=== PATIENT | female | born 1995 | race Caucasian/White ===

== ENCOUNTER → 2020-02-17 15:28 | Outpatient (CLI) | payer MEDICARE, MEDICAID, SELFPAY ==
[2020-02-18 04:28] LABS: COVID19 Sendout Not Detected (Not Detect)
== END ==
PROVIDERS: Visit Provider Family Medicine
DX: Z01.812 Encounter for preprocedural laboratory examination (principal)
CPT/HCPCS: 87635

== ENCOUNTER 2020-02-20 05:47 | Inpatient (IN) | payer MEDICARE, MEDICAID, SELFPAY ==
--- NOTE | 2020-02-11 14:57 | P.HPOB_ITS ---
OB HPI Date/Time Date of admission: 02/20/20 Date Patient Seen: 02/09/20 History of Present Condition Chief complaint: [id number] : 4 Para: 3 Estimated Date of Delivery: 02/25/20 Narrative: Josephine Borges is a 24 year old female with RODGER 02/25/2020 set by a 10 week ultrasound, who is being admitted at 39 weeks for a repeat section. She has a history of prior section for breech presentation with her 2nd , then subsequently had a . She was desiring a repeat for this , however she now desires to proceed with repeat section for delivery. She recently moved to the area and since now desires repeat C- section, presented for transfer of care at 37 weeks, desiring delivery here. Baby is also persisting as breech presentation. has been uncomplicated. Indications Operative indications ( section): breech presentation History of Present care: good care Dating criteria: based on 1st trimester US only Ultrasounds: normal 1st trimester US and normal mid trimester US Obstetrical complications: none Medical complications: none Preadmission Labs Blood type: B (+) positive -: Antibody screen: negative, GBS status: negative, HBsAG: negative (07/30/2019), HIV: negative (07/30/2019) and RPR/VDLR: negative (07/30/2019) -: Chlamydia screen: not detected (07/30/2019) and Gonorrhea screen: not detected (07/30/2019) -: Rubella: immune Cell-free DNA: normal 1 hr GTT: 107 Prior (ies) History: Vaginal delivery, followed by primary section for breech, followed by vaginal after section [facility] Medical History (Updated 02/04/20 @ 20:47 by Lizzie Brian) Anxiety (Acute) Breech (Acute) Chicken pox (Resolved) Depression (Acute) MRSA (methicillin resistant staph aureus) culture positive (Acute ~2008) Post depression (Acute) PTSD (post-traumatic stress disorder) (Acute) 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) Smokers' cough (Chronic) (spontaneous vaginal delivery) (Acute) UTI (urinary tract infection) (Acute) (vaginal after ) (Acute) Surgical History (Updated 02/02/20 @ 09:35 by Roxanna Bowers RN) History of primary section (Acute) [place] teeth removed (Acute) Family History (Updated 02/02/20 @ 09:46 by Roxanna Bowers RN) Mother PTSD (post-traumatic stress disorder) Anxiety Bipolar 1 disorder Father Unknown family medical history Family estrangement Mental health problem Grandfather AA (alcohol abuse) Liver cirrhosis Grandmother Hypertension Melanoma Hyperthyroidism Bipolar 1 disorder Family/Other Melanoma Social History Smoking Status: Current every day smoker Meds Home Medications and Allergies Home Medications Medication Instructions Recorded Confirmed Type Flinstone Multi Gummy PO 02/06/20 02/09/20 History Allergies Allergy/AdvReac Type Severity Reaction Status Date / Time No Known Drug Allergies Allergy Verified 02/09/20 10:16 Review of Systems Review of Systems Narrative: Denies regular contractions, leakage of fluid and vaginal bleeding. Denies shortness of breath or fever. Reports good move Exam Vital Signs (past 8 hours): Weight 151 lb, Afebrile, BP 110/50 Narrative Exam Narrative: General: Well-appearing gravid female in no acute distress Neck: Supple, negative for palpable cervical or supraclavicular adenopathy Thyroid: Negative for palpable masses Heart: Regular rate rhythm, negative for audible murmur Lungs: Clear to auscultation bilaterally Abdomen gravid, nontender. Fundal height 36 cm Extremities: Negative for edema Office US, artis breech presentation Assessment and Plan Assessment and Plan Assessment and Plan narrative: Thirty-nine week , history of prior section, breech presentation. Desires repeat section for delivery Plan: Admit for repeat section NPO after midnight Ancef 2 g IV to be given preop in the OR SCDs in the OR Both she and her partner did a pre-op screen for Covid 19, and both were negative Repeat section procedure reviewed. Surgical risk of bleeding, infection, injury to adjacent organs including bowel and urinary system, reviewed to include bladder and ureters, as well as small risk of injury to baby discussed. Verbal and written consent obtained
[2020-02-20 06:47] LABS: Add Manual Diff / Slide Review NO; Basophils Absolute Auto 0 /uL (0-100); Basophils Percent Auto 0.2 % (0-2); Eosinophils Absolute Auto 200 /uL (0-450); Eosinophils Percent Auto 1.5 % (2-4); Hematocrit 35.6 % (36-46); Hemoglobin 12.1 g/dL (12.0-16.0); Lymphocytes Absolute Auto 2500 /uL (1100-4500); Lymphocytes Percent Auto 19.7 % (25-40); Mean Corpuscular HGB Conc 33.9 % (30-36); Mean Corpuscular Hemoglobin 31.1 PG (26-34); Mean Corpuscular Volume 91.8 fL (80-100); Monocytes Absolute Auto 1200 /uL (0-900); Monocytes Percent Auto 9.4 % (3-14); Neutrophils Absolute Auto 8700 /uL (1500-7000); Neutrophils Percent Auto 69.2 % (50-75); Platelet Count 104 X10^3/uL (150-400); Red Blood Cell Count 3.88 X10^6/uL (4.0-5.2); Red Cell Distribution Width 13.8 % (11.6-14.8); White Blood Cell Count 12.6 X10^3/uL (4.5-11.0)
--- NOTE | 2020-02-20 07:28 | PM.PREOP ---
Pre-operative Note COVID-19 COVID-19 status: Negative Result date/Date tested (Pos, Neg/Pending): 02/17/20 Interval Note History & Physical reviewed/Exam performed by Physician: Yes Changes to H&P: No
[2020-02-20] MEDS: CEFAZOLIN 2 GM/100 ML FROZ.PIGGY IV (07:58)
--- NOTE | 2020-02-20 08:28 | SUR.OPER ---
Supine on Padded OR bed, head on pillow, safety belt at thigh, arms secured on padded arm boards at <90 degrees abduction. Bump under right buttock. Legs uncrossed with pillow under knees, gel pad to heels, tape over blanket to lower legs.
[2020-02-20] MEDS: LACTATED RINGERS 1,000 ML 100 ML IV ×2 (08:49→17:44)
--- NOTE | 2020-02-20 08:56 | SUR.OPER ---
viable baby girl born at 08, placenta delivered at 08, cord blood and placenta given to ob rn 4/8
[2020-02-20 09:25] VITALS: BP 90/58; PULSE 56; RESP 12; TEMP 36.2; O2SAT 93
--- NOTE | 2020-02-20 09:26 | PM.PROC.1 ---
Procedures Date/Time Date of procedure: 02/20/20 Time of procedure: 09:26
--- NOTE | 2020-02-20 09:27 | PM.OP.1 ---
Operative Date/Time/Diagnoses Date of procedure: 02/20/20 Time of procedure: 09:27 Pre-op diagnosis: 39 week , prior section, desires repeat for delivery, persistent breech presentation Post-op diagnosis: same Procedure & Clinicians Same procedure as scheduled: Yes Indications: Persistent breech presentation, prior section Surgeon: Eliana Chance Data Entry Associate: Ashley Us Anesthesia Type: Spinal Operative Notes Findings: was in the artis breech presentation, sacrum right posterior. Uterus and bilateral tubes and ovaries were normal in appearance Viable female infant delivered. Weight 5 lb 111.8 oz. Apgars 4, 8, 10 at 1, 5 and 10 minutes respectively. 1 minute of PPV needed and then infant cried spontaneously became more vigorous. Closure Type: primary Specimen(s): other (Cord blood to lab) Applied: catheter (Garcia placed) Estimated Blood Loss (mL): 400 Blood products transfused: none Procedure in detail: IV fluids: 2500 ml crystalloid Urine output: 250 mL Description of procedure: The patient was transferred from the center to the operating room. Spinal anesthesia was placed by the anesthesiologist. She was placed in the supine position. FHR auscultated and was normal after the spinal anesthesia. Garcia catheter was placed and she was prepped and draped in routine sterile fashion. Time-out was taken and the patient procedure was identified. Anesthesia level was tested and was adequate. A Pfannenstiel skin incision was made in the lower abdomen through her prior transverse skin incision and carried down to the level of the fascia. The fascia was incised in the midline and was extended transversely. The superior and inferior edges of the fascia were elevated and dissected off the rectus muscles with sharp and blunt dissection. The muscles were bluntly split in the midline. The parietal peritoneum was elevated, incised and extended bluntly. The bladder blade was placed. The visceral peritoneum was elevated off the lower uterus, incised and the bladder flap was bluntly created. The bladder blade retractor was placed. A transverse incision was made in the lower uterus and the incision was extended transversely with blunt dissection. Clear fluid was noted. Baby was in the artis breech presentation. Both lower legs legs were initially palpated, grasped and held through the incision. The buttocks was easily elevated and delivered through the incision. The baby was small and while rotating the baby to sacrum anterior, the baby already delivered up to its umbilicus while the right side of the infant was more anterior. The 's right arm was palpated and the right arm was delivered with ease with cat's paw maneuver. The was rotated to her left side up. The left arm was similarly delivered without difficulty with gentle pressure on the humerus, cats paw maneuver. The was turned to sacrum anterior and held with a moist towel. With fundal assistance and with pressure on the upper mandible of the infant the head was flexed and delivered through the incision with ease. The infant was not vigorous and was bulb suctioned. Cord was clamped and cut. The baby girl was shown to her mother and handed off to respiratory therapy who was present for delivery. Cord blood was obtained a specimen. The placenta was manually removed. It appeared intact with a normal three-vessel cord. The uterus was brought through the abdominal incision and swept clean of adherent clots and membranes. The uterus was closed in 1 layers with 0 Vicryl in running locking continuous fashion. There was light persistent bleeding to the left of midline which was controlled with a [id number]-cm-cgwcl suture of 0 Vicryl. Hemostasis was noted. The tubes and ovaries were inspected and noted to be normal. Posterior to the uterus was suctioned of some minimal blood and fluid. The uterus was placed back into the maternal abdomen. The paracolic gutters were inspected and were free of blood and fluid. The anterior cul-de-sac was inspected and some fluid and clot was removed. The uterine incision was re- inspected and good hemostasis was noted. The abdomen was closed. The muscles were reapproximated with 3 interrupted sutures of 0 Vicryl. The fascia was closed with running continuous suture of 0 Vicryl. The subcutaneous tissue was reapproximated with 300 Vicryl by reapproximating Radha's fascia. The skin was closed with a subcuticular suture of 4 0 Monocryl. Steri-Strips and sterile Aquacel dressing was placed. She tolerated the procedure well and went to the recovery room in stable condition
[2020-02-20 09:30] VITALS: BP 100/59; PULSE 58; RESP 12; TEMP 35.9; O2SAT 97
[2020-02-20 09:35] VITALS: BP 103/61; PULSE 61; RESP 13; TEMP 36; O2SAT 100
[2020-02-20 09:40] VITALS: BP 103/67; PULSE 57; RESP 16; TEMP 35.9; O2SAT 99
[2020-02-20 09:49] VITALS: BP 94/64; PULSE 59; RESP 14; TEMP 36.1; O2SAT 94
--- NOTE | 2020-02-20 10:03 | SUR.PHASEI ---
Patient taken to center in stable condition. Report given to receiving RN and patient left in good condition with receiving RN at bedside.
[2020-02-20 11:33] VITALS: BP 98/52
[2020-02-20] MEDS: OXYCODONE IR 5 MG TABLET PO (12:31)
[2020-02-20] MEDS: KETOROLAC 30 MG/ML VIAL IV ×2 (14:56→20:49)
[2020-02-20] MEDS: NICOTINE 14 PATCH 14 MG TOP (18:51)
[2020-02-21] MEDS: KETOROLAC 30 MG/ML VIAL IV (03:08)
[2020-02-21] MEDS: OXYCODONE IR 5 MG TABLET PO ×4 (06:26→23:54)
[2020-02-21] MEDS: LANOLIN OINT 7 GM 1 APPLIC TOP (06:27)
[2020-02-21 06:59] LABS: Add Manual Diff / Slide Review NO; Basophils Absolute Auto 0 /uL (0-100); Basophils Percent Auto 0.1 % (0-2); Eosinophils Absolute Auto 200 /uL (0-450); Eosinophils Percent Auto 1.4 % (2-4); Hematocrit 33.1 % (36-46); Hemoglobin 11.3 g/dL (12.0-16.0); Lymphocytes Absolute Auto 2000 /uL (1100-4500); Lymphocytes Percent Auto 14.9 % (25-40); Mean Corpuscular HGB Conc 34.1 % (30-36); Mean Corpuscular Hemoglobin 31.3 PG (26-34); Mean Corpuscular Volume 91.7 fL (80-100); Monocytes Absolute Auto 1000 /uL (0-900); Monocytes Percent Auto 7.1 % (3-14); Neutrophils Absolute Auto 10300 /uL (1500-7000); Neutrophils Percent Auto 76.5 % (50-75); Platelet Count 83 X10^3/uL (150-400); Red Blood Cell Count 3.61 X10^6/uL (4.0-5.2); Red Cell Distribution Width 13.9 % (11.6-14.8); White Blood Cell Count 13.5 X10^3/uL (4.5-11.0)
[2020-02-21 07:10] LABS: Alanine Aminotransferase 12 IU/L (<35); Albumin 2.9 g/dL (3.5-5.0); Alkaline Phosphatase 100 U/L (38-126); Aspartate Aminotransferase 26 IU/L (14-36); Bilirubin Total 0.2 mg/dL (0.2-1.3); Blood Urea Nitrogen 9 mg/dL (7-17); Calcium 8.5 mg/dL (8.4-10.2); Carbon Dioxide 25 mmol/L (22-32); Chloride 105 mmol/L (98-107); Estimated Glomerular Filt Rate > 60.0 mL/min (>60); Glucose 83 mg/dL (70-100); HEMOLYSIS < 15 (0-50); Potassium 4.1 mmol/L (3.4-5.1); Sodium 133 mmol/L (137-145); Total Protein 5.9 g/dL (6.3-8.2)
[2020-02-21] MEDS: DOCUSATE 250 MG CAPSULE PO (09:00)
[2020-02-21] MEDS: IBUPROFEN 600 MG TABLET PO ×3 (09:00→21:19)
[2020-02-21] MEDS: ACETAMINOPHEN 325 MG TABLET 650 MG PO (11:46)
[2020-02-21] MEDS: NICOTINE 14 PATCH 14 MG TOP (15:03)
--- NOTE | 2020-02-21 16:35 | PM.PNPO.1 ---
Subjective Subjective Date Patient Seen: 02/21/20 Time Patient Seen: 16:10 Interval history: Patient feels well. Incisional discomfort controlled with oxycodone. Voiding without problems. Lochia is normal. Ambulated. She is tolerating a regular diet. Denies nausea. Passing flatus and has had a BM. Baby is well. Exam Vital Signs (past 8 hours): Afebrile. BP 99/51 pulse 66 Oxygen Delivery Method Room Air Narrative Exam Narrative: General: Well-appearing female Abdomen: Soft, nontender, mildly nondistended. Dressing dry with only a small old blood stained area, stable from yesterday. Fundus U -2, firm, nontender Extremities: Trace pedal edema Objective Labs Result Diagrams: 02/21/20 06:34 02/21/20 06:34 Labs: Laboratory Results - last 24 hr 02/21/20 02/21/20 06:34 06:34 WBC 13.5 H RBC 3.61 L Hgb 11.3 L Hct 33.1 L MCV 91.7 MCH 31.3 MCHC 34.1 RDW 13.9 Plt Count 83 L Neut % (Auto) 76.5 H Lymph % (Auto) 14.9 L Armstrong % (Auto) 7.1 Eos % (Auto) 1.4 L Baso % (Auto) 0.1 Neut # (Auto) 10892 H Lymph # (Auto) 2000 Armstrong # (Auto) 1000 H Eos # (Auto) 200 Baso # (Auto) 0 Sodium 133 L Potassium 4.1 Chloride 105 Carbon Dioxide 25 BUN 9 Creatinine 0.53 Estimated GFR > 60.0 BUN/Creatinine Ratio 17.0 Glucose 83 Calcium 8.5 Total Bilirubin 0.2 AST 26 ALT 12 Alkaline Phosphatase 100 Total Protein 5.9 L Albumin 2.9 L Globulin 3.0 Albumin/Globulin Ratio 1.0 Assessment & Plan Post-op Postoperative Procedures: Procedures Operation Date: 02/20/20 07:45 Actual Procedures Side Surgeon p Section Eliana Chance MD Postoperative day: 1 Postoperative status: doing well Postoperative plan: routine post-op care Postoperative plan narrative: Answered questions regarding expected postoperative course at home and pain management and home with alternating her oxycodone, ibuprofen and Tylenol. Continue to p.o. hydrate well for the . Time Spent With Patient Time with patient: 15-24 minutes
[2020-02-22] MEDS: IBUPROFEN 600 MG TABLET PO ×2 (03:38→09:21)
[2020-02-22] MEDS: OXYCODONE IR 5 MG TABLET PO ×2 (04:12→09:20)
[2020-02-22 06:28] VITALS: BP 98/52; PULSE 59; RESP 14; TEMP 36.1
[2020-02-22] MEDS: DOCUSATE 250 MG CAPSULE PO (09:20)
--- NOTE | 2020-02-22 10:51 | P.DS_ITS ---
Discharge Providers Provider Date of admission: 02/20/20 05:47 Discharge Date: 02/22/20 Primary care physician: Eliana Chance MD Consults: 02/20/20 11:25 Consult to Blow Moulding Machine Operator Routine Comment: Discharge provider: Eliana Chance MD Summary Hospital Course Date Patient Seen: 02/22/20 Time Patient Seen: 11:00 Procedures: Repeat lower transverse section Hospital Course: 24-year-old , now P4 female admitted at 39 weeks for repeat section. Her was uncomplicated. She underwent repeat sect ion without complications. Infant had been in the persistent artis breech presentation. She delivered a viable female infant weighing 5 lb 11 oz with Apgars of 4, 8, 10 at 1, 5, 10 minutes respectively. Platelets on admission were 104. Her BP was normal and LFTs were normal; no signs or symptoms of preeclampsia. Thus lower platelets appear consistent with gestational thrombocytopenia since they were 160s in her early . Platelets on discharge were 83, Hgb 11.3. She had a normal postoperative and course. She has had normal return of bowel function. Her lochia has remained normal. She is breast-feeding without problems. She is ready for discharge and is being discharged home on postoperative day 2 Peripartum Data Delivery Method: Section Procedures: Repeat lower transverse section complications: none [place] 1: Gender: Female Disposition of : home Status at Discharge Cognitive/behavioral status at discharge: oriented Functional status at discharge: independent ambulation Overall status at discharge: patient is progressing back to baseline Time Spent with Patient Time attestation: Total time spent providing and/or coordinating discharge services: 20 minutes Specific discharge activities: Ambulate short distances only for first 2 weeks. Nothing in the vagina for 6 weeks. No heavy lifting for [address] after 2 weeks, or when no longer taking oxycodone, whichever is longer. Time spent discussing smoking cessation with patient: more than 10 minutes Objective Labs Result Diagrams: 02/21/20 06:34 02/21/20 06:34 Exam Vital Signs (past 8 hours): Afebrile, BP 114/62 Pulse 80 RR 17 02/22/20 06:28 Temperature 97.0 F L Pulse Rate 59 L Respiratory Rate 14 Blood Pressure 98/52 L Oxygen Delivery Method Room Air Narrative Exam Narrative: General: Well-appearing female Abdomen: Soft, nontender, nondistended. Dressing intact, dry, with only blood seen area, approximately 50 cent piece size, unchanged Fundus U -1, firm, nontender Extremities: Trace pedal edema Discharge Plan Discharge Plan Patient Disposition: Home Discharge comment: Follow-up appointment SundayFebruary 26 to remove dressing and incision check Discharge orders & Medications Prescriptions: New acetaminophen 325 mg Tablet 650 mg PO Q6HR PRN (Reason: Fever/Mild Pain (1-3)) Qty: 0 RF: 0 ibuprofen 600 mg Tablet 600 mg PO Q6HR PRN (Reason: Fever/Mild Pain (1-3)) Qty: 90 RF: 1 docusate sodium 250 mg Capsule 250 mg PO DAILY Qty: 0 RF: 0 oxycodone 5 mg Tablet 5 mg PO Q4HR PRN (Reason: Pain, Moderate (4-6)) Qty: 20 RF: 0 Yqy-J-Znggld Cream 1 applic topical PRN PRN (Reason: ) Qty: 0 RF: 0 Continued Flinstone Multi Gummy tablet 1 tab PO DAILY RF: 0 Follow up/Referrals: Eliana Chance MD [Primary Care Provider] - Discharge Health Status Multidrug resistant organism: No MDRO Diet/Activity/Treatments Diet: Regular Activity: No heavy lifting and nothing in the vagina, no intercourse or tampons for 6 weeks. No driving for 2 weeks, and no driving while still using oxycodone Skin/Wound/Dressing Care Report to your healthcare provider any signs of infection, such as:: chills, fever, increased pain, unusual drainage and unusual redness Dressing: Leave in place. May shower with the dressing in place. Call for persistent nausea or vomiting, fever greater than 100? F, skin redness above the incision, persistent increased abdominal pain or for heavy vaginal bleeding Visit Report/Discharge Packet Stand Alone Forms: Discharge: Care Discharge Data Primary Care Provider: Eliana Chance
== END 2020-02-22 12:00 | disposition home or self-care (01) | DRG 788 ==
PROVIDERS: Admitting Provider Obstetrics & Gynecology; PCP Obstetrics & Gynecology; Referring Provider Obstetrics & Gynecology; Visit Provider Obstetrics & Gynecology
PROC: 10D00Z1 Extraction of Products of Conception, Low, Open Approach (ICD-10-PCS; CPT 59514; principal; 2020-02-20 07:45)
DX: O34.219 Maternal care for unspecified type scar from previous cesarean delivery (principal); Z3A.39 39 weeks gestation of pregnancy; Z37.0 Single live birth; O99.334 Smoking (tobacco) complicating childbirth
CPT/HCPCS: 36415; 59050; 59514; 59515; 80053; 85025; 86850; 86900; 86901; 87635; J0690; J1885; J2274; J2405; J2590

== ENCOUNTER → 2020-02-27 11:10 | Outpatient (CLI) | payer MEDICARE, MEDICAID, SELFPAY | PROVIDERS: PCP Obstetrics & Gynecology; Visit Provider Obstetrics & Gynecology | DX: R30.0 Dysuria (principal) | CPT/HCPCS: 87086 ==

== ENCOUNTER → 2023-03-19 09:29 | Outpatient (CLI) | payer OTHER, MEDICAID, SELFPAY ==
[2023-03-19 10:22] LABS: Add Manual Diff / Slide Review NO; Basophils Absolute Auto 0 /uL (0-100); Basophils Percent Auto 0.2 % (0-2); Eosinophils Absolute Auto 100 /uL (0-450); Eosinophils Percent Auto 1.6 % (2-4); Hematocrit 35.2 % (36-46); Hemoglobin 12.5 g/dL (12.0-16.0); Lymphocytes Absolute Auto 1700 /uL (1100-4500); Lymphocytes Percent Auto 28.7 % (25-40); Mean Corpuscular HGB Conc 35.4 % (30-36); Mean Corpuscular Hemoglobin 31.3 PG (26-34); Mean Corpuscular Volume 88.6 fL (80-100); Monocytes Absolute Auto 500 /uL (0-900); Monocytes Percent Auto 7.8 % (3-14); Neutrophils Absolute Auto 3600 /uL (1500-7000); Neutrophils Percent Auto 61.7 % (50-75); Platelet Count 135 X10^3/uL (150-400); Red Blood Cell Count 3.97 X10^6/uL (4.0-5.2); Red Cell Distribution Width 13.1 % (11.6-14.8); White Blood Cell Count 5.8 X10^3/uL (4.5-11.0)
[2023-03-19 17:36] LABS: Hepatitis B Surface Antigen NEGATIVE s/c (NEGATIVE); Rubella Antibody IgG 66.2 IU/mL (>15)
[2023-03-19 17:55] LABS: HIV 1 & 2 Ab/Ag 4th Gen Combo NEGATIVE (NEGATIVE); Hep C Virus Ab w/Reflex Quant NEGATIVE s/c (NEGATIVE)
[2023-03-20 08:52] LABS: Varicella IgG Antibody 1688 index (Immune >165)
[2023-03-21 09:18] LABS: RPR Screen Non Reactive (Non Reactive)
== END ==
PROVIDERS: Specialist; PCP Pediatrics; Referring Provider Obstetrics & Gynecology; Visit Provider Obstetrics & Gynecology
DX: Z34.81 Encounter for supervision of other normal pregnancy, first trimester (principal)
CPT/HCPCS: 36415; 80055; 86787; 86803; 86850; 86900; 86901; 87389

== ENCOUNTER → 2023-03-20 09:47 | Outpatient (CLI) | payer OTHER, MEDICAID, SELFPAY | PROVIDERS: PCP Pediatrics; Visit Provider Obstetrics & Gynecology | DX: R30.0 Dysuria (principal); O26.891 Other specified pregnancy related conditions, first trimester | CPT/HCPCS: 87086 ==

== ENCOUNTER → 2023-05-02 10:03 | Outpatient (CLI) | payer OTHER, MEDICAID, SELFPAY ==
[2023-05-02 11:16] LABS: Add Manual Diff / Slide Review NO; Basophils Absolute Auto 0 /uL (0-100); Basophils Percent Auto 0.2 % (0-2); Eosinophils Absolute Auto 100 /uL (0-450); Eosinophils Percent Auto 1.2 % (2-4); Hematocrit 32.8 % (36-46); Hemoglobin 11.7 g/dL (12.0-16.0); Lymphocytes Absolute Auto 1400 /uL (1100-4500); Lymphocytes Percent Auto 20.4 % (25-40); Mean Corpuscular HGB Conc 35.7 % (30-36); Mean Corpuscular Hemoglobin 31.8 PG (26-34); Mean Corpuscular Volume 89.2 fL (80-100); Monocytes Absolute Auto 600 /uL (0-900); Monocytes Percent Auto 8.6 % (3-14); Neutrophils Absolute Auto 4800 /uL (1500-7000); Neutrophils Percent Auto 69.6 % (50-75); Platelet Count 119 X10^3/uL (150-400); Red Blood Cell Count 3.68 X10^6/uL (4.0-5.2); Red Cell Distribution Width 12.7 % (11.6-14.8); White Blood Cell Count 6.9 X10^3/uL (4.5-11.0)
[2023-05-05 20:33] LABS: AFP Value 18.1 ng/mL (.); Gest Age on Col Date 17.1 weeks (.); Insulin Dep Diabetes No (.); OSBR Risk 1IN 10000 (.); Results Report (.); Test Results *Screen Negative* (.)
== END ==
PROVIDERS: Physician Assistant Medical; PCP Pediatrics; Referring Provider Specialist; Visit Provider Specialist
DX: O99.119 Other diseases of the blood and blood-forming organs and certain disorders involving the immune mechanism complicating pregnancy, unspecified trimester (principal); Z3A.17 17 weeks gestation of pregnancy; D69.6 Thrombocytopenia, unspecified
CPT/HCPCS: 36415; 82105; 85025

== ENCOUNTER → 2023-05-30 08:55 | Outpatient (CLI) | payer OTHER, SELFPAY ==
--- NOTE | 2023-05-30 08:56 | DI.US.S_ITS ---
PROCEDURE: US OB >= 14 WEEKS FETUS INDICATIONS: ANATOMY OUTSIDE/PRIOR DATING DATA: Last menstrual period (LMP): 01/02/2023. LMP-based estimated date of delivery (RODGER): 10/09/2023. First dating scan (date and location): 03/08/2023. Estimated date of delivery (RODGER) from first dating scan: 10/10/2023. The calculations are made using the clinical RODGER of 10/09/2023. TECHNIQUE: Real-time scanning was performed of the fetus, with image documentation and biometric measurements. Endovaginal scanning: Not performed COMPARISON: [facility], , OB >= 14 WEEKS FETUS, 02/09/2020, 10:31. FINDINGS: General: A single living intrauterine gestation is present. Presentation: Vertex. Placenta: Placental position is anterior , without previa. Amniotic fluid index: 13.1 cm, normal range is 5-24 cm. Single deepest vertical pocket is 4.2 cm. heart rate: 147 beats per minute. Maternal cervical canal: 4.3 cm long. Normal lower limit is 2.5 cm. biometrics: Biparietal diameter: 5 cm, 21 weeks 0 days Head circumference: 18.5 cm, 20 weeks 6 days Abdominal circumference: 15.3 cm, 20 weeks 4 days Femur length: 3.6 cm, 21 weeks 2 days Clinically estimated gestational age: 21 weeks 1 day Composite gestational age from present scan: 21 weeks 0 days Estimated weight and percentile: 381 g, 29th percentile Anatomic survey: Neuro: Ventricles are non-dilated at less than 10 mm. Cisterna magna is normal at 3-11 mm. Cerebellum is normal in size and morphology. Nuchal skin fold: Normal at less than 6 mm between 14-21 weeks gestational age. Face: Nose and lips, facial profile are normal. Spine: No evidence for spina bifida. Heart: 4-chambered heart is present, with normal ventricular outflow tracts. Diaphragm: Diaphragm is intact. Stomach: Left-sided stomach is present. Kidneys: No hydronephrosis. Normal is less than 5 mm in 2nd trimester, less than 7 mm in 3rd trimester. Cord: 3-vessel cord has orthotopic insertion. Bladder: Normal in size. Extremities: All 4 extremities identified. IMPRESSION: Single living intrauterine at 21 weeks 1 day, RODGER of 10/09/2023. Normal anatomy survey. Estimated weight of 381 g, 29th percentile. We strive to produce accurate, complete, and clear reports of imaging services. To assist us in improving patient care, this report was composed using standard report templates and voice recognition software. Therefore, it may contain abnormal punctuation, insertions and/or omissions. Occasional wrong-word or sound-alike substitutions may occur. Though we review the report and make efforts to correct it, we do recommend that the report be read carefully in proper context to recognize any text inaccuracies. Dictated by: Dwayne Gibson M.D. on 06/04/2023 at 14:41 Approved by: Dwayne Gibson M.D. on 06/04/2023 at 14:44
== END ==
PROVIDERS: PCP Pediatrics; Referring Provider Specialist; Visit Provider Specialist
DX: Z34.82 Encounter for supervision of other normal pregnancy, second trimester (principal); Z3A.21 21 weeks gestation of pregnancy
CPT/HCPCS: 76811

== ENCOUNTER → 2023-08-01 10:43 | Outpatient (CLI) | payer OTHER, SELFPAY ==
[2023-08-01 12:29] LABS: Hematocrit 33.2 % (36-46); Hemoglobin 11.6 g/dL (12.0-16.0)
[2023-08-01 12:52] LABS: GTT (PREG) 1 Hour PP 50gm Dose 131 mg/dL (76-139)
== END ==
PROVIDERS: Referring Provider Specialist; Visit Provider Specialist
DX: Z34.82 Encounter for supervision of other normal pregnancy, second trimester (principal); Z3A.26 26 weeks gestation of pregnancy
CPT/HCPCS: 36415; 82950; 85014; 85018

== ENCOUNTER → 2023-08-29 10:00 | Outpatient (CLI) | payer OTHER, SELFPAY ==
[2023-08-30 17:00] LABS: Candida species Positive (Negative); Gardnerella vaginalis Positive (Negative); Trichomoas vaginalis Negative (Negative)
== END ==
PROVIDERS: Visit Provider Obstetrics & Gynecology
DX: N89.8 Other specified noninflammatory disorders of vagina (principal)
CPT/HCPCS: 87480; 87510; 87660

== ENCOUNTER → 2023-09-12 10:19 | Outpatient (CLI) | payer OTHER, SELFPAY ==
[2023-09-12 11:30] LABS: Add Manual Diff / Slide Review NO; Basophils Absolute Auto 0 /uL (0-100); Basophils Percent Auto 0.1 % (0-2); Eosinophils Absolute Auto 100 /uL (0-450); Eosinophils Percent Auto 0.7 % (2-4); Hematocrit 31.1 % (36-46); Hemoglobin 10.9 g/dL (12.0-16.0); Lymphocytes Absolute Auto 1900 /uL (1100-4500); Lymphocytes Percent Auto 17.4 % (25-40); Mean Corpuscular HGB Conc 35.1 % (30-36); Mean Corpuscular Hemoglobin 30.9 PG (26-34); Monocytes Absolute Auto 900 /uL (0-900); Monocytes Percent Auto 8.8 % (3-14); Neutrophils Absolute Auto 7800 /uL (1500-7000); Platelet Count 104 X10^3/uL (150-400); Red Blood Cell Count 3.53 X10^6/uL (4.0-5.2); Red Cell Distribution Width 13.9 % (11.6-14.8); White Blood Cell Count 10.7 X10^3/uL (4.5-11.0)
[2023-09-13 16:38] LABS: Strep Grp B PCR NEG for Grp B Strep
== END ==
PROVIDERS: Referring Provider Student in an Organized Health Care Education/Training Program; Visit Provider Student in an Organized Health Care Education/Training Program
DX: D69.6 Thrombocytopenia, unspecified (principal); Z3A.36 36 weeks gestation of pregnancy; Z34.83 Encounter for supervision of other normal pregnancy, third trimester
CPT/HCPCS: 36415; 85025; 87653

== ENCOUNTER 2023-10-04 05:47 | Inpatient (IN) | payer OTHER, MEDICAID, SELFPAY ==
[2023-10-04] VITALS (12 sets, daily range): BP systolic 101–116; BP diastolic 59–65; PULSE 58–135; RESP 14–65; TEMP 36.3–36.9; O2SAT 92–100
--- NOTE | 2023-10-04 | PATH_ITS ---
[facility] Accession Number: [id number] No. of containers..01 Tissue . 01 Material submitted: . fallopian tube - BILATERAL FALLOPIAN TUBES . 01 Diagnosis: A. Bilateral Fallopian Tubes, Bilateral Salpingectomy: Cross-sections of fallopian tubes with extensive edema and congestion of blood vessels and reactive change. Negative for dysplasia or malignancy. [facility] 10/16/2023 0859 Local . 01 Electronically signed: . Sussy Real MD, Pathologist NPI- [id number] . 01 Gross description: . The specimen is received in formalin labeled with the patient's name, , and bilateral fallopian tubes, consists of two unoriented, fimbriated fallopian tubes measuring 8.4 x 0.6 cm and 8.9 x 0.7 cm, respectively. Both tubes have violaceous, smooth serosa with no cystic structures identified, and sectioning reveals unremarkable stellate lumens. [employer] sections to include one-half of bisected fimbriae and cross sections are submitted as follows: . A1: Longer fallopian tube. A2: [place] fallopian tube. ([id number]) /MRV 10/05/2023 1735 Local . 01 Pathologist provided ICD-10: Z31.69 . 01 CPT . 187229 Specimen Comment: A courtesy copy of this report has been sent to [facility] Pathology Performed at: 01 [facility] [address] [place] [address] [address], [place], [place] [id number] MD Jake Hernández MD Phone: [phone]
[2023-10-04 07:45] LABS: Add Manual Diff / Slide Review NO; Basophils Absolute Auto 0 /uL (0-100); Basophils Percent Auto 0.1 % (0-2); Eosinophils Absolute Auto 100 /uL (0-450); Eosinophils Percent Auto 0.9 % (2-4); Hematocrit 32.8 % (36-46); Hemoglobin 11.3 g/dL (12.0-16.0); Lymphocytes Absolute Auto 1500 /uL (1100-4500); Lymphocytes Percent Auto 14.8 % (25-40); Mean Corpuscular HGB Conc 34.5 % (30-36); Mean Corpuscular Hemoglobin 29.9 PG (26-34); Mean Corpuscular Volume 86.8 fL (80-100); Monocytes Absolute Auto 900 /uL (0-900); Monocytes Percent Auto 8.5 % (3-14); Neutrophils Absolute Auto 7800 /uL (1500-7000); Neutrophils Percent Auto 75.7 % (50-75); Platelet Count 108 X10^3/uL (150-400); Red Blood Cell Count 3.77 X10^6/uL (4.0-5.2); Red Cell Distribution Width 14.3 % (11.6-14.8); White Blood Cell Count 10.3 X10^3/uL (4.5-11.0)
--- NOTE | 2023-10-04 08:43 | P.HPOB_ITS ---
OB HPI Date/Time Date of admission: 10/04/23 History of Present Condition Chief complaint: Section : 5 Para: 4 Estimated Date of Delivery: 10/09/23 Estimated Gestational Age (weeks): 39+2 Narrative: Josephine Borges is a 28 year old female Indications Operative indications ( section): previous uterine surgery History of Present care: good care Dating criteria: LMP confirmed by 1st trimester US Ultrasounds: normal mid trimester US Obstetrical complications: none Medical complications: none Narrative: Thrombocytopenia--> Initial PLT count 135, repeat 119. 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 Tyler Preadmission Labs Blood type: B (+) positive -: Antibody screen: negative, Cystic fibrosis screen: unknown, GBS status: negative, HBsAG: negative, HIV: negative, HSV 1: unknown, HSV 2: unknown and RPR/VDLR: negative -: Rubella: immune and Varicella: immune HCT: 32.8 HCAB: negative PAP: Normal (2019) Quad screen: Normal 1 hr GTT: 131 Evaluation Evaluation Baseline heart rate: 120 Variability: Moderate (11-25) monitor accelerations: Present Monitor Decelerations: Absent Status: Category l [facility] Medical History (Updated 09/12/23 @ 09:59 by Tova Tyler DO) H/O cold sores Postoperative infection Catheter-associated urinary tract infection Ganglion cyst of finger of left hand Smokers' cough Chicken pox MRSA (methicillin resistant staph aureus) culture positive (~2008) UTI (urinary tract infection) 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 ) Breech Post depression PTSD (post-traumatic stress disorder) Depression Anxiety (spontaneous vaginal delivery) Surgical History (Updated 03/08/23 @ 09:37 by Ashley Us MD) [place] teeth removed History of primary section Family History (Updated 02/15/23 @ 14:23 by Letty Yates RN) Mother PTSD (post-traumatic stress disorder) Anxiety Bipolar 1 disorder Twin Father Unknown family medical history Family estrangement Mental health problem Grandfather AA (alcohol abuse) Liver cirrhosis Grandmother Hypertension Hyperthyroidism Bipolar 1 disorder Dementia Skin cancer Twin , born in hospital, delivered Family/Other Skin cancer Grandmother Alzheimer's disease Social History marital status: unmarried,single number of children: 4 (ages 3-14) household members: children lives independently: Yes caregiver/support person: Yes housing: apartment pets and animals: Yes (4 cats, kids managing litter boxes) education level: college (some college, working on degree now) occupational status: employed current occupational exposures/hazards: Yes (animal usp) special priya needs: No travel history: over 6 months ago seatbelt use: always water heater temp set < 120 deg: Yes working smoke detector in home: Yes fire extinguisher in home: Yes (outside the apartment) carbon monox detector in home: Yes firearms in home: No do you feel safe at home: Yes Smoking Status: Current every day smoker Tobacco: How many years used: 16 Smokeless tobacco user: other quit status: considering quitting second hand exposure: Yes (s/o smokes, mostly outside and in garage) alcohol intake: former substance use type: former substance user, marijuana, crack/cocaine, hallucinogens, club/embroidery designer drugs and methamphetamine during the past year weight has: remained stable well-balanced diet: daily or most days daily servings fruits/ve or more times/day caffeine: Yes (aware of 200mg limit) Type(s) of exercise: walking and yoga Meds Home Medications and Allergies Home Medications Medication Instructions Recorded Confirmed Type ibuprofen 200 mg tablet 200 mg PO Q6H PRN Abdominal 06/01/22 10/04/23 History Discomfort fluconazole 150 mg tablet 150 mg PO Q48H 2 doses #2 tabs 09/03/23 10/04/23 Rx metronidazole 0.75 % (37.5 mg/5 1 appful vaginal BEDTIME 5 days 09/03/23 10/04/23 Rx gram) vaginal gel #70 grams Allergies Allergy/AdvReac Type Severity Reaction Status Date / Time No Known Drug Allergies Allergy Verified 09/26/23 10:21 OB Exam Vital signs Blood Pressure: 114/65 Pulse Rate: 66 Temperature: 98.4 F HENMT Head: normal to inspection Resp Effort & Inspection: normal respiratory effort and able to speak in complete sentences Extremities Lower extremity: Yes normal to inspection GI Other: gravid, nontender, nondistended Objective Labs 10/04/23 07:30 Labs: Laboratory Results - last 24 hr 10/04/23 07:30 WBC 10.3 RBC 3.77 L Hgb 11.3 L Hct 32.8 L MCV 86.8 MCH 29.9 MCHC 34.5 RDW 14.3 Plt Count 108 L Neut % (Auto) 75.7 H Lymph % (Auto) 14.8 L [place] % (Auto) 8.5 Eos % (Auto) 0.9 L Baso % (Auto) 0.1 Neut # (Auto) 7800 H Lymph # (Auto) 1500 [place] # (Auto) 900 Eos # (Auto) 100 Baso # (Auto) 0 Blood Type B Positive Antibody Screen Negative Assessment and Plan Assessment and Plan Assessment and Plan narrative: 28yo at 39+2wks admitted for planned repeat . This will be her 3rd. She also desires permanent sterilization with bilateral salpingectomy. -CBC, T&S on admission -NST preop -neuraxial anesthesia -GBS neg -PPH risk medium given anemia and repeat c/s -VTE risk low, SCDs intraop and postop -will move to OR for delivery once all teams ready Csection consent: It was explained to the patient that a section is a surgery to deliver the baby through an incision in the abdominal wall and uterus.? All procedures can be associated with risk and unforeseen complications, which can be immediate or delayed.? Risks and complications of section include, but are not limited to:? infection of the uterus, pelvic organs, or skin; inadvertent injury to internal organs such as the bowel, bladder, or possibly even the baby; blood loss, transfusion, and/or life-threatening hemorrhage requiring hysterectomy; blood clots in the legs, pelvic organs, or lungs; adverse reaction to medications or anesthesia during surgery; development of placenta accreta spectrum in a subsequent ; and increased risk of section in a subsequent . Time Spent with Patient Total time spent with greater than 50% in coordination of care (as documented) at patient's floor/unit and/or counseling patient:: 15-24 minutes
[2023-10-04] MEDS: LACTATED RINGERS 1,000 ML 999 ML IV (09:05)
[2023-10-04] MEDS: CEFAZOLIN 2 GM/100 ML PREMIX 100 ML IV (10:31)
[2023-10-04] MEDS: ACETAMINOPHEN IV 1,000 MG/100 ML VIAL 400 MG IV (10:40)
--- NOTE | 2023-10-04 11:32 | SUR.OPER ---
Baby girl and placenta delivered at 1101. Cord blood tubes x2 and placenta given to L&D RN.
--- NOTE | 2023-10-04 11:53 | P.OP_ITS ---
Operative Date/Time/Diagnoses Date of procedure: 10/04/23 Time of procedure: 11:53 Pre-op diagnosis: 1. Rosales intrauterine gestation at 39+2 weeks 2. History of delivery 3. Undesired future fertility 4. Gestational thrombocytopenia 5. Vaping in Post-op diagnosis: same Procedure & Clinicians Procedure: Repeat low transverse section Bilateral salpingectomy Same procedure as scheduled: Yes Indications: 28yo at 39+2wks admitted for repeat with bilateral salpingectomy. Surgeon: Tova Tyler Medical Billing Assistant: Rachel Mills Anesthesia Type: Spinal Operative Notes Findings: Normal appearing uterus, bilateral fallopian tubes, and bilateral ovaries. Clear fluid noted with delivery. Delivery productive of a viable female infant with APGARs 6/8 weighing 2917g. Closure Type: primary Specimen(s): other (bilateral fallopian tubes) Estimated Blood Loss (mL): 800 Blood products transfused: none Procedure in detail: The risks, benefits, indications and alternatives of the procedure were reviewed with the patient and informed consent was obtained. The patient was taken to the operating room where spinal anesthesia was obtained without difficulty and was found to be adequate. SCDs were placed bilaterally for VTE prophylaxis. A kenney catheter was placed in her bladder. She was then prepped and draped in the normal, sterile fashion in the dorsal supine position with a leftward tilt. A Pfannenstiel skin incision was then made with the scalpel and carried through to the underlying layer of fascia. The fascia was incised in the midline and the incision extended laterally with the Navarro scissors and Bovie cautery. The superior aspect of the incision was grasped, tented up with Mook clamps and the rectus muscles were dissected off sharply with a blade and Navarro scissors. The rectus muscles were then at the midline. The peritoneum was identified, and entered digitally. The omentum was noted to be adhesed to a portion of the lower uterine segment, thus this was ligated and transected with the Ligasure device. The peritoneal incision was then extended horizontally, superiorly and inferiorly, with good visualization of the bladder. The vesicouterine peritoneum was then identified, grasped with pick-ups, and entered sharply with Metzenbaum scissors. This incision was then extended laterally and the bladder flap was created digitally. The lower uterine segment was incised in a transverse fashion with the scalpel. The uterine incision was then extended manually in a cephalad/caudad direction. The amniotic sac was artificially ruptured, productive of clear fluid. The bladder blade was then removed. The infant?s head delivered atraumatically through the hysterotomy without difficulty, followed by the body.? The cord was doubly clamped and cut after a 60sec delay with the infant handed off to the waiting pediatrics team. The placenta was then removed spontaneously with gentle traction on the umbilical cord. The uterus was then exteriorized and cleared of all clots and debris. The uterine incision was repaired with 0-vicryl in a running, locked fashion with excellent hemostasis achieved. Attention was then turned to the right fallopian tube, which was grasped with a Roxy clamp. The LigaSure device was used to ligate and transect the fallo pian tube along the mesosalpinx, with ultimate transection of the fallopian tube. The same procedure was then completed on the left side twice. Both fallopian tubes were sent to pathology for review. The uterus was returned to the abdomen and the hysterotomy was again noted to be hemostatic. The paracolic gutters were cleared of all clot and debris. The fascia was reapproximated with 0-PDS in a running fashion. The subcutaneous layer was closed with 3-0 vicryl in simple, interrupted sutures. The skin was closed with 4-0 monocryl in a subcuticular fashion. The incision was then dressed with steri-strips and an Aquacel dressing was applied. At the completion of the case, a Crede maneuver was performed with good uterine tone and minimal vaginal bleeding noted.? The patient tolerated the procedure well. Sponge, lap and needle counts were correct x3. The patient was taken to the recovery room in stable condition. Complications: none Post-operative Condition: stable Disposition: PACU
[2023-10-04] MEDS: METHYLERGONOVINE 0.2 MG TABLET PO (12:55)
[2023-10-04] MEDS: OXYCODONE IR 5 MG TABLET PO (12:56)
[2023-10-04] MEDS: LANOLIN OINT 7 GM 1 APPLIC TOP (12:56)
[2023-10-04] MEDS: NICOTINE 21 MG PATCH TOP (14:38)
[2023-10-04] MEDS: KETOROLAC 30 MG/ML VIAL IV ×2 (14:59→20:37)
[2023-10-04] MEDS: ACETAMINOPHEN 325 MG TABLET 650 MG PO (20:38)
[2023-10-05] MEDS: CALCIUM CARBONATE 500 MG TAB PO (00:04)
[2023-10-05] MEDS: OXYCODONE IR 5 MG TABLET PO (00:15)
[2023-10-05] MEDS: ACETAMINOPHEN 325 MG TABLET 650 MG PO ×2 (04:26→10:47)
[2023-10-05] MEDS: KETOROLAC 30 MG/ML VIAL IV (04:26)
[2023-10-05 08:31] LABS: Add Manual Diff / Slide Review NO; Basophils Absolute Auto 0 /uL (0-100); Basophils Percent Auto 0.1 % (0-2); Eosinophils Absolute Auto 100 /uL (0-450); Hematocrit 30.4 % (36-46); Hemoglobin 10.3 g/dL (12.0-16.0); Lymphocytes Absolute Auto 1400 /uL (1100-4500); Lymphocytes Percent Auto 12.2 % (25-40); Mean Corpuscular Hemoglobin 29.6 PG (26-34); Monocytes Absolute Auto 800 /uL (0-900); Monocytes Percent Auto 7.1 % (3-14); Neutrophils Absolute Auto 8800 /uL (1500-7000); Neutrophils Percent Auto 79.6 % (50-75); Platelet Count 98 X10^3/uL (150-400); Red Blood Cell Count 3.49 X10^6/uL (4.0-5.2); Red Cell Distribution Width 14.7 % (11.6-14.8); White Blood Cell Count 11.1 X10^3/uL (4.5-11.0)
[2023-10-05] MEDS: DOCUSATE 100 MG CAPSULE PO (08:47)
[2023-10-05] MEDS: OXYCODONE IR 5 MG TABLET 10 MG PO (08:47)
[2023-10-05] MEDS: PRENATAL VIT,CALC/IRON/FOLIC 1 TABLET 1 TAB PO (08:47)
[2023-10-05] MEDS: FERROUS SULFATE 325 MG TABLET PO (08:48)
--- NOTE | 2023-10-05 09:54 | P.DS_ITS ---
Discharge Providers Provider Date of admission: 10/04/23 05:47 Discharge Date: 10/05/23 Primary care physician: Doctor Braxton MD Consults: 10/04/23 12:16 Consult to [employer] Offbearer Routine Comment: Discharge provider: Tova Tyler DO Summary Hospital Course Date Patient Seen: 10/05/23 Time Patient Seen: 09:54 Diagnoses: 1. Rosales intrauterine gestation at 39+2 weeks, delivered via repeat low transverse section 2. History of delivery 3. Undesired future fertility 4. Gestational thrombocytopenia 5. Vaping in Hospital Course: 28yo [id number] admitted at 39+2wks for repeat with bilateral salpingectomy. Her delivery was uncomplicated, and productive of a viable female with APGARs 6/8 weighing 2917g. Her course was uncomplicated. By post-op day #1, she was ambulating, tolerating regular diet, voiding spontaneously with minimal lochia. Her pain was well controlled with oral medications, thus she was discharged to home on post-op day #1. Peripartum Data Infant Delivery Method: Section Procedures: 1. External monitoring 2. Spinal anesthesia 3. Repeat low transverse section with bilateral salpingectomy complications: none [place] 1: Gender: Female Disposition of : home Discharge Diagnosis (1) Delivery by section of full-term : Status: Acute (2) Thrombocytopenia affecting : Status: Acute (3) Sterilization: Status: Acute (4) Nicotine vapor product user: Status: Acute Status at Discharge Cognitive/behavioral status at discharge: oriented Functional status at discharge: independent ambulation Overall status at discharge: patient is progressing back to baseline Time Spent with Patient Time attestation: Total time spent providing and/or coordinating discharge services: Time spent: Less than 30 minutes Objective Labs 10/05/23 08:05 Labs: Laboratory Results - last 24 hr 10/05/23 08:05 WBC 11.1 H RBC 3.49 L Hgb 10.3 L Hct 30.4 L MCV 87.0 MCH 29.6 MCHC 34.0 RDW 14.7 Plt Count 98 L Neut % (Auto) 79.6 H Lymph % (Auto) 12.2 L [place] % (Auto) 7.1 Eos % (Auto) 1.0 L Baso % (Auto) 0.1 Neut # (Auto) 8800 H Lymph # (Auto) 1400 [place] # (Auto) 800 Eos # (Auto) 100 Baso # (Auto) 0 Exam Vital Signs (past 8 hours): Oxygen Delivery Method Room Air Narrative Exam Narrative: vitals reviewed in OBIX, within normal parameters Const General: cooperative, healthy appearing, comfortable and No acute distress Resp Effort & Inspection: normal respiratory effort GI Inspection: normal to inspection Other: fundus firm and nontender at U-3 Skin General: no rashes or lesions noted Other: Pfannenstiel skin incision covered with Aquacel dressing, with minimal strikethrough Neuro General: patient alert and patient awake Extrem General: normal to inspection, no pedal edema and no calf tenderness Psych Mood: congruent mood Affect: normal affect Discharge Plan Discharge Plan Patient Disposition: Home Provider Discharge Comment: Continue taking ibuprofen 600mg every 6hrs, with tylenol 650mg every 6hrs. Use oxycodone every 4hrs as needed for severe pain. Avoid lifting >20lbs for at least 6 weeks. Nothing in the vagina for 6 weeks. Discharge orders & Medications Prescriptions: New oxycodone 5 mg Tablet 5 mg PO Q4H PRN (Reason: Pain, Moderate (4-6)) Qty: 10 0RF Discontinued fluconazole 150 mg tablet 150 mg PO Q48H Qty: 2 3RF Rx Instructions: One tablet p.o. now and take 2nd tablet in 48 hours. metronidazole 0.75 % (37.5mg/5 gram) gel 1 appful vaginal BEDTIME 5 Days Qty: 70 3RF ibuprofen 200 mg tablet 200 mg PO Q6H PRN (Reason: Abdominal Discomfort) Follow up/Referrals: Doctor Limon MD [Primary Care Provider] - Tova Tyler DO [Physician] - Diet/Activity/Treatments Diet: Diet as Tolerated Activity: As above. Skin/Wound/Dressing Care Skin care: Shower normally. Dressing: Return to the [facility] clinic in 1 week to have the Aquacel dressing removed. Visit Report/Discharge Packet Instructions: DI for Prescription Opioid Use, DI for Stand Alone Forms: Patient Portal/API, Stroke Signs & Symptoms Discharge Data Primary Care Provider: Doctor Braxton
[2023-10-05 10:34] VITALS: BP 105/59; PULSE 70; RESP 14; TEMP 36.3
[2023-10-05] MEDS: IBUPROFEN 600 MG TABLET PO (10:47)
== END 2023-10-05 13:40 | disposition home or self-care (01) | DRG 784 ==
PROVIDERS: Admitting Provider Student in an Organized Health Care Education/Training Program; Referring Provider Student in an Organized Health Care Education/Training Program; Visit Provider Student in an Organized Health Care Education/Training Program
PROC: 10D00Z1 Extraction of Products of Conception, Low, Open Approach (ICD-10-PCS; CPT 59514; principal; 2023-10-04 07:45)
DX: O34.211 Maternal care for low transverse scar from previous cesarean delivery (principal); O99.12 Other diseases of the blood and blood-forming organs and certain disorders involving the immune mechanism complicating childbirth; Z30.2 Encounter for sterilization; D69.6 Thrombocytopenia, unspecified; Z3A.39 39 weeks gestation of pregnancy; Z37.0 Single live birth; O99.334 Smoking (tobacco) complicating childbirth; F17.290 Nicotine dependence, other tobacco product, uncomplicated
CPT/HCPCS: 36415; 58611; 59025; 59050; 59514; 85025; 86850; 86900; 86901; J0131; J0690; J1885; J2274; J2405